=== PATIENT | male | born 1935 | race Caucasian/White ===

== ENCOUNTER 2017-05-06 06:38 | Inpatient (IN) | payer OTHER ==
[~2017-05-06] VITALS: Ht 172.7 cm; Wt 75.8 kg
--- NOTE | ~2017-05-06 | D ---
[facility] [place] [address] DISCHARGE SUMMARY Name: JETHRO PLAZA Room #: 212-P [facility] IN M.R.#: [id number] Admission: 05/07/17 Attend Phys: Yuriy Swanson MD Discharge: 05/08/17 Date of : 33 Report #: [id number] THIS REPORT FOR: //name// CC: Yuriy Maldonadonima Domingo DATE OF SERVICE: 05/08/2017 DISCHARGE DIAGNOSES: 1. Heart block. 2. Sinus bradycardia. 3. Pneumothorax. PROCEDURES PERFORMED: Dual chamber pacemaker. HISTORY OF PRESENT ILLNESS: The patient is an 82-year-old with a history of longstanding complete heart block who has recently become symptomatic. He is here for dual chamber pacemaker implantation. His pacemaker was somewhat challenging as the atrial lead would keep falling out of position. I decided to utilize a second atrial lead, and this also fell down several times. I ended up placing lead in the high lateral right atrium, and the lead remained in place here. While obtaining access to the left axillary vein, I did draw some air back. Therefore, I ordered a chest x-ray on the same day of the procedure, which showed no pneumothorax. HOSPITAL COURSE: The following day, the patient was doing well, and the pacemaker was functioning normally, and the lead remained in its correct position. The chest x-ray the following day did show small apical pneumothorax, with a repeat chest x-ray later on in the day showing that this had decreased. On the day of discharge, a repeat PA and lateral showed resolution of the pneumothorax. He was doing well without any chest pain, shortness of breath, PND, orthopnea. His physical exam revealed normal cardiac exam with no murmurs, rubs, gallops. Lungs were clear bilaterally. Abdomen was soft, nontender, nondistended. As such, he was deemed stable home for discharge with followup with me in 7-10 days. Discharge instructions were reviewed, and he was discharged on the same medications he came in on. <ELECTRONICALLY SIGNED> By: Yuriy Swanson MD 05/14/17 [phone] Yuriy Swanson MD /nt
--- NOTE | ~2017-05-06 | P ---
[facility] [place] [address] PROCEDURE REPORT Name: JETHRO PLAZA Room #: 212-P [facility] IN M.R.#: [id number] Admission: 05/07/17 Attend Phys: Yuriy Swanson MD Discharge: 05/08/17 Date of : 33 Report #: [id number] THIS REPORT FOR: //name// CC: Yuriy Lane PROCEDURE PERFORMED: Dual chamber pacemaker implantation. PREOPERATIVE DIAGNOSIS: Complete heart block. POSTOPERATIVE DIAGNOSES: Sick sinus syndrome and complete heart block. HISTORY OF PRESENT ILLNESS: The patient is an 82-year-old who has had complete heart block for about a year. He has not really had any symptoms with this and had not wanted a pacemaker, but recently started noticing increased fatigue and shortness of breath. He is here for a dual chamber pacemaker implantation for a third degree heart block. ANESTHESIA: The patient underwent MAC anesthesia with no anesthesia related complications. PROCEDURE: The patient underwent informed consent where we discussed the details of the procedure including the risks, which include, but not limited to bleeding, infection, vascular damage, cardiac perforation and pneumothorax. He understood these risks and is willing to proceed. As such, he was brought to the EP laboratory in a fasting and sedated state and prepped and draped in a sterile fashion. He received IV antibiotics prior to the initiation of the procedure. He underwent a venogram showing patency of the left axillary vein. Next, I injected 20 mL of lidocaine below the level of left clavicle. Incision was made. A pocket was created over the prepectoral fascia and access was obtained twice to left axillary vein. Next, a lead was positioned into the right ventricular apex. This had adequate pacing and sensing thresholds. Next, I attempted to place a lead into the standard right atrial appendage and the lead dislodged several times. I attempted to place this lead in a more lateral position and again this lead dislodged. I thought that there was potentially something wrong with the lead, therefore I placed a guidewire into the insulation of the atrial lead and advanced this into the vascular space to obtain access. I then placed a new sheath and a new atrial lead and again this lead dislodged several times. The best P waves were coming from the high lateral right atrium. Of note, the atrium appear to be very enlarged and there was almost no atrial contractility based on the motion of the lead when it was in position. Eventually, I was able to get this lead into a right lateral position and I advanced the lead several times and it no longer was dislodging. This had adequate pacing and sensing thresholds. The leads were sutured to the prepectoral fascia and the device was connected. The pocket was then closed in 3 layers after the pocket was irrigated and surgical glue was placed to the outer skin layer. The patient awoke neurologically and hemodynamically intact [address] [address] PROCEDURE REPORT Name: JETHRO PLAZA Room #: 212-P [facility] IN M.R.#: [id number] Admission: 05/07/17 Attend Phys: Yuriy Swanson MD Discharge: 05/08/17 Date of : 33 Report #: [id number] with no complications and no significant bleeding. Because I had some difficulty with left axillary vein access, I did order a postop chest x-ray to be performed in the PACU. The implanted pacemaker was a [employer] model # EE1690, serial #[id number], the leads were [employer] with the atrial lead being 2088TC, 52 cm with a serial #[id number] and the RV lead model #2088TC, 58 cm, serial # [id number]. The lead that was discarded after failed attempts was also [employer] model #2088TC, 52 cm, serial #[id number]. The atrial lead demonstrated a P-wave of 1.7 millivolts, pacing impedance of 490 ohms and a pacing threshold of 0.75 volts at 0.4 milliseconds. The RV lead demonstrated no underlying R waves through the pacemaker, but before via the PSA was 7.2 millivolts, the pacing impedance was 530 ohms and the pacing threshold was 0.5 volts at 0.4 milliseconds. The device was programmed to the DDDR 60-130 mode. CONCLUSIONS: 1. Successful dual-chamber pacemaker implantation. 2. Satisfactory atrial and right ventricular pacing and sensing thresholds. 3. Difficult atrial lead positioning due to multiple atrial lead dislodgements and poor atrial substrate. By: [id number] Yuriy Swanson MD /nt
[2017-05-06] MEDS ORDERED: NORVASC10 MG PO (06:55)
[2017-05-06] MEDS ORDERED: SYNTHROID75 MCG PO (06:56)
[2017-05-06] MEDS ORDERED: AVALIDE 300-121 EACH PO (06:56)
[2017-05-06] MEDS ORDERED: ASPIR 8181 MG PO (06:56)
[2017-05-06] MEDS ORDERED: UNICOMPLEX M TA1 TA1 PO (06:56)
[2017-05-06] MEDS ORDERED: OMEGA 3 1,0001 EACH PO (06:56)
[2017-05-06] MEDS ORDERED: PRAVACHOL40 MG PO (06:57)
[2017-05-06] MEDS ORDERED: [UNRECOGNIZED DRUG - OTHER] PO (06:58)
[2017-05-06 07:25] LABS: ABSOLUTE NEUTROPHILS 3.2 thou/uL (1.4-8.2); HEMOGLOBIN 14.5 gm/dL (14.0-18.0); LYMPHOCYTES 31.2 % (24.0-44.0); MCH 32.9 pg (26.0-34.0); MCHC 34.5 g/dL (28.0-37.0); MCV 95.3 fL (80.0-100.0); MONOCYTES 8.7 % (1.0-8.0); PLATELET COUNT 137 thou/uL (150-400); POLYS 57.1 % (36.0-66.0); RBC 4.41 mil/uL (4.50-6.00); RDW 13.2 % (10.5-14.5); WBC 5.6 thou/uL (4.0-11.0)
[2017-05-06 07:26] LABS: MANUAL DIFF NO
[2017-05-06 07:34] VITALS: BP 163/64
[2017-05-06 07:37] LABS: CALCIUM 9.1 mg/dL (8.5-10.1); POTASSIUM 3.7 mmol/L (3.5-5.1)
[2017-05-06 07:43] LABS: TOTAL BILIRUBIN 1.5 mg/dL (<0.1-1.0); TOTAL PROTEIN 6.6 g/dL (6.4-8.2)
[2017-05-06 08:03] LABS: APTT 24.2 Seconds (24.5-32.8); INR 1.1; PROTIME 10.9 Seconds (9.3-11.4)
[2017-05-06 11:59] VITALS: BP 156/97
[2017-05-06 15:26] VITALS: BP 159/98
[2017-05-06 19:28] VITALS: BP 147/100
[2017-05-06 23:57] VITALS: BP 150/94
[2017-05-07 03:54] VITALS: BP 149/101
[2017-05-07 08:39] VITALS: BP 146/88
[2017-05-07 11:30] VITALS: BP 146/88
[2017-05-07 16:24] VITALS: BP 145/90
[2017-05-07 19:12] VITALS: BP 139/87
[2017-05-08 03:57] VITALS: BP 153/100
[2017-05-08 08:00] VITALS: BP 152/88
[2017-05-08 10:30] VITALS: BP 152/88
== END 2017-05-08 12:00 | disposition home or self-care (01) | DRG 243 ==
LOC: CATH 06:38 → 2N 11:40 → CATH 12:07 → 2N 05-07 12:12 → ENTRNSPT 05-08 11:39 → EDTRNSPTSTS 05-08 11:53 → 2N 05-08 12:00
PROVIDERS: Internal Medicine Cardiovascular Disease
DX: I44.2 Atrioventricular block, complete (principal); J93.9 Pneumothorax, unspecified; I10 Essential (primary) hypertension; E78.5 Hyperlipidemia, unspecified
CPT/HCPCS: 10081; 62110; 62900; 70005

== ENCOUNTER → 2020-01-12 | Outpatient (CLI) | payer OTHER ==
[~2020-01-12] MED LIST: ASPIR 8181 MG PO; AVALIDE 300-121 EACH PO; NORVASC10 MG PO; OMEGA 3 1,0001 EACH PO; PRAVACHOL40 MG PO; SYNTHROID75 MCG PO; UNICOMPLEX M TA1 TA1 PO; [UNRECOGNIZED DRUG - OTHER] PO
== END ==
LOC: SJCVC 11:06
PROVIDERS: ATTEND Internal Medicine
DX: R94.31 Abnormal electrocardiogram [ECG] [EKG] (principal); I44.2 Atrioventricular block, complete; I10 Essential (primary) hypertension; E78.5 Hyperlipidemia, unspecified; Z95.0 Presence of cardiac pacemaker; Z82.49 Family history of ischemic heart disease and other diseases of the circulatory system; Z87.891 Personal history of nicotine dependence; Z79.82 Long term (current) use of aspirin; Z79.899 Other long term (current) drug therapy

== ENCOUNTER → 2021-01-01 | Outpatient (CLI) | payer OTHER | LOC: SJCVC 10:05 | PROVIDERS: ATTEND Internal Medicine | DX: R94.31 Abnormal electrocardiogram [ECG] [EKG] (principal); I44.2 Atrioventricular block, complete; I10 Essential (primary) hypertension; E78.5 Hyperlipidemia, unspecified; Z95.0 Presence of cardiac pacemaker; Z79.82 Long term (current) use of aspirin; Z79.899 Other long term (current) drug therapy; Z87.891 Personal history of nicotine dependence ==

== ENCOUNTER → 2021-07-03 | Outpatient (CLI) | payer OTHER | LOC: SJCVCIMAG 08:28 | PROVIDERS: ATTEND Internal Medicine | DX: I08.3 Combined rheumatic disorders of mitral, aortic and tricuspid valves (principal); I11.9 Hypertensive heart disease without heart failure; I44.2 Atrioventricular block, complete; Z95.0 Presence of cardiac pacemaker; I48.21 Permanent atrial fibrillation; E78.5 Hyperlipidemia, unspecified; Z98.890 Other specified postprocedural states; Z79.899 Other long term (current) drug therapy; Z87.891 Personal history of nicotine dependence ==